=== PATIENT | female | born 1990 | race Two or more races ===

== ENCOUNTER 2016-09-15 04:52 | Emergency (ER) | payer MEDICAID ==
[2016-09-15] MEDS ORDERED: ONDANSETRON 4 MG/2ML 2 ML VIAL ONE (05:45)
[2016-09-15] MEDS ORDERED: LACTATED RINGERS 1,000 ML ONE (05:45)
[2016-09-15] MEDS ORDERED: HYDROMORPHONE HCL 1 MG/ML SYRINGE ONE (05:45)
[2016-09-15 05:58] LABS: ABSOLUTE NEUTROPHIL COUNT 5.1 K/mm3 (1.8-7.7); BASO % 0.4 % (0.2-1.0); EOS # 0.1 (0.0-0.5); HEMATOCRIT 39.5 % (37.0-47.0); HEMOGLOBIN 13.2 gm/l (12.0-16.0); IMM NEUT% 0.3 % (0-1); LYMPH # 2.2 (1.0-4.8); LYMPH % 27.6 % (15-45); MEAN CELL VOLUME 81.6 fl (81.0-99.0); MEAN CORPUSCULAR HEMOGLOBIN 27.3 pg (27.0-31.0); MEAN CORPUSCULAR HGB CONC 33.4 g/dl (33.0-37.0); MEAN PLATELET VOLUME 11.4 fl (7.4-10.4); MONO # 0.6 (0.0-0.8); MONO % 7.3 % (4-12); NEUT % 63.4 % (43-75); PLATELET COUNT 212 K/mm3 (130-400); RED CELL DISTRIBUTION WIDTH 13.1 % (11.5-14.5)
[2016-09-15 06:19] LABS: ALB/GLOB RATIO 1.4 (>1.0); ALBUMIN 4.4 gm/dL (3.5-5.7); CALCIUM 9.6 mg/dL (8.6-10.3)
[2016-09-15 06:41] LABS: HCG,QUALITATIVE URINE NEGATIVE
--- NOTE | 2016-09-15 08:10 | US ---
Exam: Gallbladder ultrasound COMPARISON: 12/26/2013 INDICATION: Right upper quadrant pain radiating to the back. FINDINGS: Gallbladder ultrasound was obtained. Solitary 2.6 cm mobile stone was identified within the gallbladder. There is no gallbladder wall thickening or pericholecystic fluid. There was a negative sonographic Gordillo sign. Common bile duct normal at 2 mm. IMPRESSION: Cholelithiasis without sonographic features of acute cholecystitis. Preliminary report transmitted to the emergency department from [facility] at 0737 hours 09/15/2016.
== END 2016-09-15 08:08 | disposition home or self-care (01) ==
LOC: ED 04:52
DX: R10.9 Unspecified abdominal pain (principal); R11.0 Nausea
CPT/HCPCS: 83690; 81025; 85025; 80053; 76705; 96375; 99284 ×2; 96374; 96361; J1170; J2405; J7120

== ENCOUNTER 2016-09-16 01:03 | Emergency (ER) | payer MEDICAID ==
[2016-09-16] MEDS ORDERED: KETOROLAC TROMETHAMINE 30 MG/ML 1 ML VIAL ONE (02:45)
[2016-09-16] MEDS ORDERED: SODIUM CHLORIDE 0.9% 1,000 ML ONE (02:45)
[2016-09-16] MEDS ORDERED: ONDANSETRON 4 MG/2ML 2 ML VIAL ONE (02:45)
[2016-09-16 03:10] LABS: ABSOLUTE NEUTROPHIL COUNT 11.2 K/mm3 (1.8-7.7); BASO % 0.2 % (0.2-1.0); EOS % 0.1 % (0.9-2.9); HEMATOCRIT 38.6 % (37.0-47.0); HEMOGLOBIN 12.7 gm/l (12.0-16.0); IMM NEUT% 0.3 % (0-1); LYMPH # 1.2 (1.0-4.8); LYMPH % 9.1 % (15-45); MEAN CELL VOLUME 80.6 fl (81.0-99.0); MEAN CORPUSCULAR HEMOGLOBIN 26.5 pg (27.0-31.0); MEAN CORPUSCULAR HGB CONC 32.9 g/dl (33.0-37.0); MEAN PLATELET VOLUME 11.2 fl (7.4-10.4); MONO # 0.9 (0.0-0.8); NEUT % 83.3 % (43-75); PLATELET COUNT 186 K/mm3 (130-400); RED CELL DISTRIBUTION WIDTH 13.2 % (11.5-14.5)
[2016-09-16 03:19] LABS: ALB/GLOB RATIO 1.4 (>1.0); ALBUMIN 4.2 gm/dL (3.5-5.7); CALCIUM 9.3 mg/dL (8.6-10.3)
[2016-09-16 03:59] LABS: PH,URINE 6.5 (5.0-8.0); SPECIFIC GRAVITY 1.015 (1.001-1.030); URINE BILIRUBIN NEGATIVE (NEGATIVE); URINE BLOOD NEGATIVE (NEGATIVE); URINE GLUCOSE (UA) NEGATIVE (NEGATIVE); URINE LEUKOCYTE ESTERASE 1+ (NEGATIVE); URINE NITRITE NEGATIVE (NEGATIVE); URINE PROTEIN NEGATIVE (NEGATIVE); URINE UROBILINOGEN NORMAL (0-1 mg/dl)
[2016-09-16 04:01] LABS: URINE APPEARANCE CLEAR; URINE COLOR LIGHT YELLOW
[2016-09-16 04:11] LABS: URINE BACTERIA RARE
--- NOTE | 2016-09-16 07:48 | CT ---
Exam: CT abdomen and pelvis without contrast COMPARISON: Gallbladder ultrasound 09/15/2016 INDICATION: Right lower quadrant pain. TECHNIQUE: CT examination of the abdomen and pelvis was obtained without contrast using a renal stone protocol. FINDINGS: Moderate amount of stool is seen within the colon. The appendix is normal. There is no bowel obstruction, free air or free intraperitoneal fluid. Uterus and ovaries are grossly unremarkable on this noncontrast exam. Urinary bladder within normal limits. There is no pelvic lymphadenopathy or fluid collection. The liver, spleen, pancreas, kidneys, adrenal glands and gallbladder are all unremarkable on this noncontrast exam. Lung bases are clear. No worrisome lytic or blastic osseous lesion is identified. Degenerative disease is noted at the lumbosacral junction. IMPRESSION: No acute findings identified to explain right-sided abdominal pain. Preliminary report transmitted to the emergency department from [facility] at 0333 hours 09/16/2016.
== END 2016-09-16 05:35 | disposition home or self-care (01) ==
LOC: ED 01:03
DX: K80.20 Calculus of gallbladder without cholecystitis without obstruction (principal); R11.0 Nausea
CPT/HCPCS: 83690; 85025; 87086; 80053; 81001; 74176; 96375; 99283 ×2; 96374; 96361 ×2; J1885; J2405; J7030

== ENCOUNTER 2016-09-23 13:25 | Emergency (ER) | payer MEDICAID ==
[2016-09-23] MEDS ORDERED: KETOROLAC TROMETHAMINE 15 MG/ML VIAL ONE (14:39)
[2016-09-23] MEDS ORDERED: OXYCODONE HCL 5 MG TABLET ONE (14:39)
[2016-09-23 14:52] LABS: SPECIFIC GRAVITY 1.015 (1.001-1.030); URINE BILIRUBIN NEGATIVE (NEGATIVE); URINE BLOOD NEGATIVE (NEGATIVE); URINE GLUCOSE (UA) NEGATIVE (NEGATIVE); URINE LEUKOCYTE ESTERASE NEGATIVE (NEGATIVE); URINE NITRITE NEGATIVE (NEGATIVE); URINE PROTEIN NEGATIVE (NEGATIVE); URINE UROBILINOGEN NORMAL (0-1 mg/dl)
[2016-09-23 14:56] LABS: URINE APPEARANCE CLEAR; URINE COLOR YELLOW
[2016-09-23 14:58] LABS: HCG,QUALITATIVE URINE NEGATIVE
[2016-09-23 15:01] LABS: ABSOLUTE NEUTROPHIL COUNT 3.3 K/mm3 (1.8-7.7); BASO % 0.3 % (0.2-1.0); EOS # 0.1 (0.0-0.5); EOS % 0.8 % (0.9-2.9); HEMATOCRIT 40.2 % (37.0-47.0); HEMOGLOBIN 13.2 gm/l (12.0-16.0); IMM NEUT% 0.3 % (0-1); LYMPH # 2.6 (1.0-4.8); LYMPH % 40.3 % (15-45); MEAN CELL VOLUME 80.9 fl (81.0-99.0); MEAN CORPUSCULAR HEMOGLOBIN 26.6 pg (27.0-31.0); MEAN CORPUSCULAR HGB CONC 32.8 g/dl (33.0-37.0); MEAN PLATELET VOLUME 10.8 fl (7.4-10.4); MONO # 0.5 (0.0-0.8); MONO % 7.4 % (4-12); NEUT % 50.9 % (43-75); PLATELET COUNT 274 K/mm3 (130-400); RED CELL DISTRIBUTION WIDTH 13.2 % (11.5-14.5)
[2016-09-23 15:10] LABS: ALB/GLOB RATIO 1.4 (>1.0); ALBUMIN 4.5 gm/dL (3.5-5.7); CALCIUM 9.5 mg/dL (8.6-10.3)
--- NOTE | 2016-09-23 15:11 | US ---
EXAMINATION: Limited gallbladder ultrasound examination was performed. CLINICAL INDICATION: Right upper quadrant pain. COMPARISON: Prior exam dated 09/15/2016 FINDINGS: Gallbladder: 8.3 cm in length. Cholelithiasis: There is a 2.1 cm stone noted within the fundus of the gallbladder. Gallbladder wall thickness: 4.3 millimeters. Pericholecystic fluid: Absent Common bile duct:Not dilated and measures 2 millimeters. Sonographic Gordillo's sign: None elicited. Patient on pain medication. IMPRESSION: Cholelithiasis with sonographic changes worrisome for cholecystitis. There is moderate gallbladder wall thickening to 4.3 mm. The findings were uploaded to the electronic medical record for review at approximately 3:12 PM 09/23/2016
== END 2016-09-23 16:06 | disposition home or self-care (01) ==
LOC: ED 13:25
DX: K80.20 Calculus of gallbladder without cholecystitis without obstruction (principal)
CPT/HCPCS: 83690; 81025; 85025; 80053; 81003; 76705; 99283 ×2; 96374; A9270; J1885